=== PATIENT | female | born 1960 | race Caucasian/White ===

== ENCOUNTER → 2023-07-30 | Outpatient (CLI) | payer BC ==
[~2023-07-30] MED LIST: METHACHOLINE KIT INH ONE
== END ==
LOC: M CARPUL 13:47
PROVIDERS: ATTEND Physician Assistant
DX: R06.00 Dyspnea, unspecified (principal)
CPT/HCPCS: 94070; J7674

== ENCOUNTER 2023-10-15 06:50 | Day surgery (SDC) | payer BC ==
[~2023-10-15] VITALS: Ht 170.2 cm; Wt 95.9 kg
[~2023-10-15 06:50] MED LIST changes: +ATEN25TA PO; +BUPR150T12 PO; +CARV6.25 PO; +CYAN-11 PO; +D 10CHW PO; +FLUT1BLS3 INH; +LISI20TA33 PO; -METHACHOLINE KIT INH ONE; +MONT10TA97 PO; +OMEG10002 PO; +PANT40TA29 PO; +SENN-186 PO; +VENTAER INH; +XANA0.25 PO; +[UNRECOGNIZED DRUG - OTHER] PO; +moringa PO
[2023-10-15] MEDS ORDERED: LR 1,000 ML IV SCH (07:10)
[2023-10-15] MEDS ORDERED: MIDAZOLAM INJ 2MG/2ML VIAL As Ordered ONE (07:58)
[2023-10-15] MEDS ORDERED: propofoL 200 MG/20 ML VIAL As Ordered ONE (07:58)
[2023-10-15] MEDS ORDERED: LIDOCAINE 2% 100MG/5ML SDV (FOR ANES.) As Ordered ONE (07:58)
[2023-10-15] MEDS ORDERED: fentaNYL 100 MCG/2 ML INJECTION As Ordered ONE (07:58)
[2023-10-15] MEDS ORDERED: HYDR-3713 PO (08:56)
[2023-10-15 10:20] VITALS: BP 124/60; TEMP 97.1; O2SAT 98
== END 2023-10-15 10:30 | disposition home or self-care (01) ==
LOC: M SDC 06:50
PROVIDERS: ATTEND Urology
DX: N20.0 Calculus of kidney (principal); J45.909 Unspecified asthma, uncomplicated; K58.9 Irritable bowel syndrome, unspecified; F41.9 Anxiety disorder, unspecified; R32 Unspecified urinary incontinence; I10 Essential (primary) hypertension; K21.9 Gastro-esophageal reflux disease without esophagitis; M17.0 Bilateral primary osteoarthritis of knee; M19.011 Primary osteoarthritis, right shoulder; M19.012 Primary osteoarthritis, left shoulder; Z87.442 Personal history of urinary calculi; Z87.891 Personal history of nicotine dependence; Z79.899 Other long term (current) drug therapy; Z79.51 Long term (current) use of inhaled steroids
CPT/HCPCS: 50590; 74018; J2250; J3010

== ENCOUNTER → 2023-11-09 | Outpatient (REF) | payer BC ==
[~2023-11-09] MED LIST changes: +HYDR-3713 PO
== END ==
LOC: M SMT 09:51
PROVIDERS: ATTEND Physician Assistant
DX: Z48.816 Encounter for surgical aftercare following surgery on the genitourinary system (principal)